=== PATIENT | male | born 1950 | race Caucasian/White ===

== ENCOUNTER 2023-03-01 22:13 | Inpatient (IN) | payer MEDICARE, OTHER ==
[2023-03-01] MEDS: Sodium Chloride 0.9% 1,000 ML IV SCH ×2 (22:35→23:43)
[2023-03-01] MEDS ORDERED: Sodium Chloride 0.9% 10 ML Syringe FLUSH PRN (22:52)
[2023-03-01 23:05] LABS: HEMATOCRIT 39.7 % (40.0-54.0); HEMOGLOBIN 14.1 g/dL (13.0-18.0); MEAN CORPUSCULAR HEMOGLOBIN 43.4 pg (27.0-32.0); MEAN CORPUSCULAR HGB CONC 35.5 g/dL (31.0-35.0); MEAN PLATELET VOLUME 10.1 fL (6.0-10.0); RED BLOOD CELL COUNT 3.25 M/uL (4.50-6.50); RED CELL DISTRIBUTION WIDTH 12.1 % (11.0-16.0); WHITE BLOOD CELL COUNT,WBC 19.3 K/uL (4.0-11.0)
[2023-03-01 23:18] LABS: A/G RATIO 1.2 (0.8-2.0); ALBUMIN 4.1 g/dL (3.4-5.0); BILIRUBIN TOTAL 0.9 mg/dL (0.0-1.0); CALCIUM 9.7 mg/dL (8.5-10.1); CARBON DIOXIDE,CO2 22.7 mmol/L (21.0-32.0); EST CRCL DRUG DOSING (CG) 45.64 mL/min; MAGNESIUM 1.8 mg/dL (1.8-2.4); PHOSPHORUS 3.2 mg/dL (2.5-4.9); POTASSIUM,K 4.7 mmol/L (3.5-5.1); PROTEIN TOTAL,TP 7.4 g/dL (6.4-8.2)
[2023-03-01] MEDS ORDERED: Sodium Chloride 0.9% 1,000 ML IV SCH (23:45)
[2023-03-02] MEDS: Sodium Chloride 0.9% 1,000 ML IV SCH ×3 (01:04→12:51)
[2023-03-02] MEDS ORDERED: Acetaminophen 325 MG Tab ONE (08:49)
[2023-03-02 08:52] LABS: HEMATOCRIT 34.7 % (40.0-54.0); HEMOGLOBIN 12.3 g/dL (13.0-18.0); MEAN CORPUSCULAR HEMOGLOBIN 43.5 pg (27.0-32.0); MEAN CORPUSCULAR HGB CONC 35.4 g/dL (31.0-35.0); MEAN PLATELET VOLUME 9.9 fL (6.0-10.0); RED BLOOD CELL COUNT 2.83 M/uL (4.50-6.50); WHITE BLOOD CELL COUNT,WBC 12.6 K/uL (4.0-11.0)
[2023-03-02] MEDS: Nicotine 14 MG/24 Hr Patch TRDERM SCH (08:56)
[2023-03-02] MEDS: Acetaminophen 325 MG Tab PO PRN ×4 (08:57→23:30)
[2023-03-02 09:09] LABS: ANION GAP 17.4 mmol/L (5.0-15.0); BUN/CREATININE RATIO 16.5 (6-25); CALCIUM 8.4 mg/dL (8.5-10.1); CARBON DIOXIDE,CO2 20.9 mmol/L (21.0-32.0); CREATININE 0.79 mg/dL (0.70-1.30); EST CRCL DRUG DOSING (CG) 57.84 mL/min; POTASSIUM,K 4.3 mmol/L (3.5-5.1)
[2023-03-02] MEDS: Aspirin 81 MG Tab.EC PO SCH (10:54)
[2023-03-02] MEDS ORDERED: Gabapentin 300 MG Cap PO SCH (12:00)
[2023-03-02] MEDS: Gabapentin 300 MG Cap *PT OWN MED PO SCH ×2 (13:52→19:54)
[2023-03-02] MEDS: MAGNESIUM OXIDE 420 MG PO SCH ×2 (13:52→19:54)
[2023-03-02] MEDS: CHOLECALCIFEROL 25 MCG PO SCH (13:53)
[2023-03-02] MEDS: HYDROXYUREA 500 MG PO SCH (13:54)
[2023-03-02] MEDS ORDERED: traMADol 50 MG Tab PO ONE (17:20)
[2023-03-02] MEDS ORDERED: traMADol 50 MG Tab ONE (17:22)
[2023-03-02 19:41] LABS: APPEARANCE,URINE CLEAR (CLEAR); BILIRUBIN,URINE MODERATE (NEGATIVE); COLOR,URINE YELLOW; GLUCOSE,URINE NEGATIVE (NEGATIVE); KETONES,URINE >=160 mg/dL (NEGATIVE); LEUKOCYTE ESTERASE,URINE NEGATIVE (NEGATIVE); NITRITE,URINE NEGATIVE (NEGATIVE); OCCULT BLOOD,URINE NEGATIVE (NEGATIVE); PH,URINE 5.5 (5.0-8.0); PROTEIN,URINE NEGATIVE (NEGATIVE); UROBILINOGEN,URINE 0.2 E.U./dL (0.2-1.0)
[2023-03-02] MEDS: Famotidine 20 MG Tab *PT OWN MED PO SCH (19:54)
[2023-03-02] MEDS: MIRTAZAPINE 30 MG PO SCH (19:54)
[2023-03-02] MEDS ORDERED: Gabapentin 600 MG Tab PO SCH (20:00)
[2023-03-03] MEDS ORDERED: Haloperidol 1 MG Tab PO ONE (00:30)
[2023-03-03] MEDS: Sodium Chloride 0.9% 1,000 ML IV SCH (00:43)
[2023-03-03] MEDS ORDERED: LORazepam 2 MG/ML SDV IV SCH (02:30)
[2023-03-03] MEDS ORDERED: PHENobarbital Sodium 130 MG/ML SDV IVPUSH ONE (02:46)
[2023-03-03] MEDS: Acetaminophen 325 MG Tab PO PRN (06:08)
[2023-03-03] MEDS: CHOLECALCIFEROL 25 MCG PO SCH (08:55)
[2023-03-03] MEDS: MAGNESIUM OXIDE 420 MG PO SCH ×2 (08:56→19:51)
[2023-03-03] MEDS: HYDROXYUREA 500 MG PO SCH (08:57)
[2023-03-03] MEDS: Gabapentin 300 MG Cap *PT OWN MED PO SCH ×3 (08:58→19:50)
[2023-03-03] MEDS: Aspirin 81 MG Tab.EC PO SCH (08:59)
[2023-03-03] MEDS: Nicotine 14 MG/24 Hr Patch TRDERM SCH (09:00)
[2023-03-03] MEDS ORDERED: Omeprazole 20 MG Cap.CR PO ONE (13:16)
[2023-03-03] MEDS ORDERED: Dexamethasone 4 MG/ML 5 ML MDV IVPUSH ONE (13:16)
[2023-03-03] MEDS ORDERED: Sodium Chloride 3% 250 ML IV SCH (13:30)
[2023-03-03] MEDS: MIRTAZAPINE 30 MG PO SCH (19:50)
[2023-03-03] MEDS: Famotidine 20 MG Tab *PT OWN MED PO SCH (19:51)
[2023-03-03] MEDS ORDERED: traMADol 50 MG Tab PO ONE (21:30)
[2023-03-04 00:05] VITALS: BP 151/73; PULSE 76
== END 2023-03-04 02:25 | DRG 641 ==
LOC: LB.ED 22:13 → UNDOADMOB 03-02 → LB.ED 03-02 → LB.MS 03-02 → INTOOBSV 03-03 19:40 → OBSVTOIN 03-03 19:40 → UNDODISIN 03-04 02:25
PROVIDERS: ADMIT Surgery; ATTEND Surgery
DX: E86.0 Dehydration (principal); Z68.1 Body mass index [BMI] 19.9 or less, adult; E87.8 Other disorders of electrolyte and fluid balance, not elsewhere classified; E87.1 Hypo-osmolality and hyponatremia; D45 Polycythemia vera; F10.10 Alcohol abuse, uncomplicated; L89.90 Pressure ulcer of unspecified site, unspecified stage; G93.89 Other specified disorders of brain; Z99.3 Dependence on wheelchair; F17.210 Nicotine dependence, cigarettes, uncomplicated; I11.0 Hypertensive heart disease with heart failure; I50.9 Heart failure, unspecified; D72.829 Elevated white blood cell count, unspecified; R63.4 Abnormal weight loss; C44.90 Unspecified malignant neoplasm of skin, unspecified; Z79.82 Long term (current) use of aspirin; Z79.899 Other long term (current) drug therapy; Z89.612 Acquired absence of left leg above knee
CPT/HCPCS: 36415; 70450; 74176; 80048; 80053; 81003; 83605; 83735; 84100; 85027; 96360; 96361; 96374; 99285-25; A0425; A0429; A9270-GY; G0378; J1100; J7030; J7131